=== PATIENT | male | born 1980 | race African-American/Black ===

== ENCOUNTER 2018-10-07 18:44 | Emergency (ER) | payer MEDICARE, OTHER ==
[~2018-10-07] VITALS: Ht 182.9 cm; Wt 74.8 kg
[~2018-10-07 18:44] MED LIST: IBU600T
[2018-10-07 18:46] VITALS: BP 139/91
[2018-10-07] MEDS ORDERED: BACLOFEN 10 MG TAB PO ONE (19:30)
[2018-10-07] MEDS ORDERED: DexAMETHasone SOD PHOS 10MG/1ML VIAL INJ IM ONE (19:30)
== END 2018-10-07 20:09 | disposition home or self-care (01) ==
LOC: ER 18:44
DX: B02.9 Zoster without complications (principal); M62.838 Other muscle spasm
CPT/HCPCS: 96372; 99283; J1100

== ENCOUNTER 2019-04-07 21:01 | Emergency (ER) | payer OTHER ==
[~2019-04-07] VITALS: Ht 182.9 cm; Wt 77.1 kg
[2019-04-07 22:50] VITALS: BP 138/93
[2019-04-07] MEDS ORDERED: IBUPROFEN 800 MG TAB PO ONE (23:15)
[2019-04-07] MEDS ORDERED: HYDROcodone-ACET 10/325MG TAB PO ONE (23:15)
== END 2019-04-07 23:33 | disposition home or self-care (01) ==
LOC: ER 21:01
DX: S62.337A Displaced fracture of neck of fifth metacarpal bone, left hand, initial encounter for closed fracture (principal); W22.8XXA Striking against or struck by other objects, initial encounter; Y93.89 Activity, other specified; Y99.8 Other external cause status; Y92.89 Other specified places as the place of occurrence of the external cause
CPT/HCPCS: 29125; 73130